=== PATIENT | male | born 1995 | race Caucasian/White ===

== ENCOUNTER 2017-12-17 13:20 | Emergency (ER) | payer SELFPAY ==
[2017-12-17 14:01] VITALS: BP 117/71
--- NOTE | 2017-12-17 14:46 | UC ---
Laceration HPI - HPI Summary HPI Summary: Patient is a left-hand dominant. Patient presents with a 1.5 cm laceration to the volar aspect of his right index finger. Patient states he had opened a can of tuna fish and got cut with the top. Bleeding controlled. Patient is not on anticoagulation. Patient is not immunocompromised. Patient states his last tetanus is unknown however he is in the starting in 2011. Patient declined a tetanus booster today. Patient denies any pain. Patient states he' s got some tingling in the area of the cut. Patient denies hand weakness. Patient rinsed it and covered a Band-Aid prior to coming in. Patient denies much pain. Patient did not take any analgesia. Patient's medications reviewed this visit. - History Of Current Complaint Chief Complaint: UCLaceration Stated Complaint: RIGHT INDEX FINGER LAC Time Seen by Provider: 12/17/17 14:38 Hx Obtained From: Patient Laceration Location: Head Mechanism Of Injury: Sharp Trauma Onset/Duration: Sudden Onset Severity: Mild Pain Intensity: 0 - Allergies/Home Medications Allergies/Adverse Reactions: Allergies Allergy/AdvReac Type Severity Reaction Status Date / Time amoxicillin Allergy Hives Verified 12/17/17 13:58 Home Medications: Home Medications NK [No Home Medications Reported] 12/17/17 [History Confirmed 12/17/17] PMH/Surg Hx/FS Hx/Imm Hx Previously Healthy: Yes - Surgical History Surgical History: Yes Surgery Procedure, Year, and Place: TONSILLECTOMY AND ADENOIDECTOMY A CHILD, . MYRINGOTOMY WITH BILATERAL TUBE PLACEMENT A CHILD. R HAND SURGERY ( [facility]) - Family History Known Family History: Positive: Other - noncontributory - Social History Occupation: Employed Full-time Alcohol Use: Occasionally Substance Use Type: None Smoking Status (MU): Heavy Every Day Tobacco Smoker Type: Cigarettes Amount Used/How Often: 1 PACK Q2 1/2 DAYS Length of Time of Smoking/Using Tobacco: LESS THAN A YEAR Have You Smoked in the Last Year: Yes Review of Systems Constitutional: Negative Skin: Other Neurological: Paresthesia - Area of wound All Other Systems Reviewed And Are Negative: Yes Physical Exam - Summary Physical Exam Summary: Vital Signs Reviewed: Yes A+Ox3, no distress Eyes: Conjunctiva Clear ENT: Hearing grossly normal neck: supple Respiratory: Positive: No respiratory distress, No accessory muscle use Cardiovascular: skin color reflect adequate perfusion 2+ radial Musculoskeletal Exam: FARRELL x 4 without difficulty Full flex/ext PIP, DIP, MCP without difficulty or weakness Neurological: Positive: Alert, ambulatory without difficulty + gross sensation throughout Psychological: Positive: Normal Response To Family Skin: Positive: no rash, no ecchymosis Pt with 1.5cm laceration volar aspect of right index over middle phalynx. No crepitus Triage Information Reviewed: Yes Vital Signs: Initial Vital Signs Temp 98.6 F 12/17/17 13:54 Pulse 70 12/17/17 13:54 Resp 14 12/17/17 13:54 BP 117/71 12/17/17 13:54 Pulse Ox 99 12/17/17 13:54 Laceration Repair - Laceration Repair 1 Procedure Summary: Verbal consent given for repair Time out conducted with nurse El in the room Area prepped in sterile fashion irrigated copious evaluted through full ROM in sterile field Sudden symptoms infection patient Reviewed wound care with patient reviewed s/s infection Strict return precautions discussed pt tolerated well questions asked and answers Description: Linear Laceration Size After Repair: Length (cm) - 1.5 Modified For Repair: No Type Injection: Local Anesthesia Used: 1.0% Lido - 1.5 Cleansing Completed Via Routine Prep: Yes Irrigation With Pressure Irrigation Device: Yes Closure Material: Sutures - t4 Closure Method: Single Layer Suture Of: Skin Suture Type: Prolene - 4-0 Laceration Course/Dx - Course/Dx Course Of Treatment: Patient presents with a laceration to his right index finger. Patient is left-hand dominant. Patient is not immunocompromised per patient with 1.5 cm closed with good approximation for sutures. Reviewed with patient signs and symptoms of infection. Reviewed with patient wound care. Patient was placed in a splint applied by the RN for comfort and support at work. Patient does not need for mobilization so where he can take off his needed. Reviewed with patient Motrin Tylenol. Reviewed with patient signs and symptoms of infection. Return precautions. Sutures out in 8-10 days. Patient given note for work. Patient comfortable in agreement with plan. Of note, patient unsure when his last tetanus was. Patient declined tetanus today discussed at length. It should be noted that the patient was in the as recently as 2 years ago. - Differential Dx - Laceration/Wound Provider Diagnoses: laceration right index Discharge - Sign-Out/Discharge Documenting (check all that apply): Patient Departure - Discharge Plan Condition: Stable Disposition: HOME Patient Education Materials: Care For Your Stitches (DC), Laceration (ED) Forms: *Work Release Referrals: London Randolph MD [Primary Care Provider] - Additional Instructions: - your stitches should come out in 8-10 days - you can return here, go to your Doctor or any urgent care center - okay to alternate ibuprofin (advil, motrin) and tylenol every 3hours as needed for pain -Anticipate increased discomfort over the next several hours as the numbing medication wears off -Keep your wound clean and dry - no soaking for 24 hours. Then, okay for wound to get wet - pat dry, don't rub -apply a thin layer of antibiotic ointment (neosporin, polysporin) 2-3 times a day - keep your wound clean - monitor for signs of infection - reddness, red streaking, odor, green drainage - Contact your doctor or return here with questions or concerns - Billing Disposition and Condition Condition: STABLE Disposition: Home
[2017-12-17] MEDS ORDERED: Lidocaine 1%* 5 ML VIAL INJ ONE (14:50)
== END 2017-12-17 15:23 | disposition home or self-care (01) ==
LOC: UCCORT 13:20
DX: S61.210A Laceration without foreign body of right index finger without damage to nail, initial encounter (principal); W26.8XXA Contact with other sharp object(s), not elsewhere classified, initial encounter; Y93.89 Activity, other specified; Y92.9 Unspecified place or not applicable; Z88.0 Allergy status to penicillin; F17.210 Nicotine dependence, cigarettes, uncomplicated
CPT/HCPCS: 12001; 99213; G0463

== ENCOUNTER 2017-12-23 11:54 | Emergency (ER) | payer SELFPAY ==
[2017-12-23 12:07] VITALS: BP 134/59
--- NOTE | 2017-12-23 12:27 | UC ---
Skin Complaint HPI - HPI Summary HPI Summary: sutres palgeovani R index 8 days ago. here for removal. no complaints. - History of Current Complaint Chief Complaint: UCLaceration Time Seen by Provider: 12/23/17 12:20 Stated Complaint: SUTURE REMOVAL Hx Obtained From: Patient Pain Intensity: 0 Aggravating Factor(s): Nothing Associated Signs & Symptoms: Negative: Fever, Rash, Tenderness, Red Streaks, Joint Swelling - Allergy/Home Medications Allergies/Adverse Reactions: Allergies Allergy/AdvReac Type Severity Reaction Status Date / Time amoxicillin Allergy Hives Verified 12/23/17 12:04 Review of Systems Constitutional: Negative Skin: Other - sutures R index Eyes: Negative ENT: Negative Respiratory: Negative Cardiovascular: Negative Gastrointestinal: Negative Genitourinary: Negative Motor: Negative Neurovascular: Negative Musculoskeletal: Negative Neurological: Negative Psychological: Negative Is Patient Immunocompromised?: No All Other Systems Reviewed And Are Negative: Yes PMH/Surg Hx/FS Hx/Imm Hx Previously Healthy: Yes - Surgical History Surgical History: Yes Surgery Procedure, Year, and Place: TONSILLECTOMY AND ADENOIDECTOMY A CHILD, . MYRINGOTOMY WITH BILATERAL TUBE PLACEMENT A CHILD. R HAND SURGERY ( [facility]) - Family History Known Family History: Positive: Other - noncontributory - Social History Occupation: Employed Full-time Alcohol Use: Occasionally Alcohol Amount: "several" drinks tonight Substance Use Type: None Smoking Status (MU): Heavy Every Day Tobacco Smoker Type: Cigarettes Amount Used/How Often: 1 PPD Length of Time of Smoking/Using Tobacco: Since Age 18 Have You Smoked in the Last Year: Yes Household Exposure Type: Cigarettes - Immunization History Hx Tetanus, Diphtheria Vaccination: Yes Vaccination Up to Date: Yes Physical Exam Triage Information Reviewed: Yes Appearance: Well-Appearing Vital Signs: Initial Vital Signs Temp 98.8 F 12/23/17 12:02 Pulse 66 12/23/17 12:02 Resp 16 12/23/17 12:02 BP 134/59 12/23/17 12:02 Pulse Ox 98 12/23/17 12:02 Vital Signs Reviewed: Yes Eyes: Positive: Conjunctiva Clear ENT: Positive: Normal ENT inspection Neck: Positive: Supple, Nontender Respiratory: Positive: Lungs clear, Normal breath sounds Cardiovascular: Positive: RRR, No Murmur Abdomen Description: Positive: Nontender, No Organomegaly, Soft Bowel Sounds: Positive: Present Musculoskeletal: Positive: ROM Intact Neurological: Positive: Alert Psychological: Positive: Age Appropriate Behavior Skin Exam: Normal, Other - Stitches R index volar surface. Area healed without red, swelling or tenderness. s/v/m is intact. Course/Dx - Course Course Of Treatment: sutures removed by nurse per my order - Diagnoses Provider Diagnoses: suture removal R index finger Discharge - Sign-Out/Discharge Documenting (check all that apply): Patient Departure - Discharge Plan Condition: Stable Disposition: HOME Patient Education Materials: Stitches Removal (ED) Referrals: London Randolph MD [Primary Care Provider] - If Needed - Billing Disposition and Condition Condition: STABLE Disposition: Home
== END 2017-12-23 12:25 | disposition home or self-care (01) ==
LOC: UCCORT 11:54
DX: S61.210D Laceration without foreign body of right index finger without damage to nail, subsequent encounter (principal); X58.XXXD Exposure to other specified factors, subsequent encounter; Z88.0 Allergy status to penicillin; F17.210 Nicotine dependence, cigarettes, uncomplicated

== ENCOUNTER 2018-11-19 11:06 | Emergency (ER) | payer SELFPAY ==
[2018-11-19 11:18] VITALS: BP 138/70
--- NOTE | 2018-11-19 12:06 | UC ---
Complaint Male HPI - HPI Summary HPI Summary: 2 days of dysuria. He thinks it may be dehydration although he reports nl urination and drinking fluids normally. He does report hx of chlamydia. - History of Current Complaint Chief Complaint: UCGU Stated Complaint: URINARY ISSUE Time Seen by Provider: 11/19/18 11:49 Hx Obtained From: Patient Pain Intensity: 6 Pain Scale Used: 0-10 Numeric Character: Burning Aggravating Factor(s): Voiding Alleviating Factor(s): Nothing Associated Signs And Symptoms: Positive: Dysuria. Negative: Back Pain, Fever, Hematuria, Rectal Pain, Penile Discharge - Allergies/Home Medications Allergies/Adverse Reactions: Allergies Allergy/AdvReac Type Severity Reaction Status Date / Time amoxicillin Allergy Hives Verified 11/19/18 11:18 PMH/Surg Hx/FS Hx/Imm Hx - Additional Past Medical History Additional PMH: no chronic issues Previously Healthy: Yes - Surgical History Surgical History: Yes Surgery Procedure, Year, and Place: TONSILLECTOMY AND ADENOIDECTOMY A CHILD, . MYRINGOTOMY WITH BILATERAL TUBE PLACEMENT A CHILD. R HAND SURGERY ( [facility]) - Family History Known Family History: Positive: Other - noncontributory - Social History Alcohol Use: Occasionally Alcohol Amount: "several" drinks tonight Substance Use Type: None Smoking Status (MU): Heavy Every Day Tobacco Smoker Type: Cigarettes Amount Used/How Often: 1 PPD Length of Time of Smoking/Using Tobacco: Since Age 18 Have You Smoked in the Last Year: Yes Household Exposure Type: Cigarettes - Immunization History Hx Tetanus, Diphtheria Vaccination: Yes Vaccination Up to Date: Yes Review of Systems All Other Systems Reviewed And Are Negative: Yes Constitutional: Positive: Negative Skin: Positive: Negative Genitourinary: Positive: Dysuria. Negative: Hematuria, Frequency, Urgency, Vaginal/Penile Discharge Musculoskeletal: Negative: Arthralgia Physical Exam Triage Information Reviewed: Yes Appearance: Well-Appearing Vital Signs: Initial Vital Signs Temp 99.2 F 11/19/18 11:16 Pulse 82 11/19/18 11:16 Resp 18 11/19/18 11:16 BP 138/70 11/19/18 11:16 Pulse Ox 100 11/19/18 11:16 Vital Signs Reviewed: Yes Eyes: Positive: Conjunctiva Clear Respiratory Exam: Normal Cardiovascular Exam: Normal Abdomen Description: Positive: Nontender, Soft Male Genital Exam: Negative: Other - deferred Skin: Negative: Rashes Complaint Male Course/Dx - Course Course Of Treatment: vitals good. Given hx and his concern for chlamydia will tx empirically and test. discussed safe sex. - Differential Dx/Diagnosis Differential Diagnosis/HQI/PQRI: Urinary Tract Infection, Other Provider Diagnosis: Dysuria Discharge - Sign-Out/Discharge Documenting (check all that apply): Patient Departure All imaging exams completed and their final reports reviewed: No Studies - Discharge Plan Condition: Good Disposition: HOME Prescriptions: Azithromycin 1 gm PO ONCE 1 Days #1 packet Patient Education Materials: Dysuria (ED) Referrals: London Randolph MD [Primary Care Provider] - Additional Instructions: If not improving please follow up with primary care. - Billing Disposition and Condition Condition: GOOD Disposition: Home
[2018-11-20 12:56] LABS: Neisseria gonorrhoeae (GC) RNA Negative (Negative)
== END 2018-11-19 12:23 | disposition home or self-care (01) ==
LOC: UCEAST 11:06
DX: R30.0 Dysuria (principal); F17.210 Nicotine dependence, cigarettes, uncomplicated
CPT/HCPCS: 81003; 87086; 87491; 87591; 99212; G0463